=== PATIENT | female | born 1985 | race Caucasian/White ===

== ENCOUNTER → 2017-12-06 | Outpatient (CLI) | payer OTHER | LOC: M OUTALCOH 11:34 | DX: F10.10 Alcohol abuse, uncomplicated (principal); F12.10 Cannabis abuse, uncomplicated ==

== ENCOUNTER 2017-12-25 15:41 | Outpatient (RCR) | payer OTHER | END 2018-01-15 | LOC: M OUTALCOH 15:41 | DX: F12.10 Cannabis abuse, uncomplicated (principal) ==

== ENCOUNTER → 2019-03-20 | Outpatient (CLI) | payer OTHER ==
[~2019-03-20] MED LIST: LAMI25TA PO; No Home Medications; SERO200T43 PO; TRAZ-252 PO; atarax PO
== END ==
LOC: M OUTALCOH 13:46
PROVIDERS: ATTEND Psychiatry & Neurology Psychiatry
DX: Z03.89 Encounter for observation for other suspected diseases and conditions ruled out (principal)

== ENCOUNTER 2019-04-07 09:52 | Outpatient (RCR) | payer OTHER | END 2019-04-17 | LOC: M OUTALCOH 09:52 | PROVIDERS: ATTEND Psychiatry & Neurology Psychiatry | DX: F12.10 Cannabis abuse, uncomplicated (principal) ==